=== PATIENT | male | born 1955 | race Caucasian/White ===

== ENCOUNTER 2021-05-16 17:45 | Inpatient (IN) ==
[2021-05-17] MEDS ORDERED: Ipratropium/Albuterol Neb 3 ML IH PRN (02:12)
[2021-05-17 05:58] LABS: Basophils % 0.1 %; Eosinophils # 0.1 K/mcL (0.0-0.6); Eosinophils % 0.4 %; Hemoglobin 8.4 g/dL (12.9-16.9); Immature Granulocytes % 0.9 % (0-4); Lymphocytes # 1.4 K/mcL (0.6-4.6); Lymphocytes % 10.1 %; Mean Corpuscular Hemoglobin 31.3 pg (28.0-33.3); Mean Corpuscular Volume 89.6 fL (83.0-100.0); Mean Platelet Volume 10.4 fL (9.4-12.4); Monocytes % 8.1 %; Nucleated Red Blood Cells 0.1 /100 WBC (0); Platelet Count 155 K/mcL (140-400); Red Blood Count 2.68 M/mcL (4.19-5.50); Red Cell Distribution Width 25.6 % (11.5-14.5); Segmented Neutrophils % 80.4 %; White Blood Count 14.1 K/mcL (4.3-11.1)
[2021-05-17 06:08] LABS: Monocytes # 1.1 K/mcL (0.0-1.3); Neutrophils # 11.3 K/mcL (1.6-8.9)
[2021-05-17 06:21] LABS: Alanine Aminotransferase 67 Units/L (7-52); Albumin 2.2 g/dL (3.5-5.7); Albumin/Globulin Ratio 0.7 (1.1-2.2); Alkaline Phosphatase 96 Units/L (34-104); Aspartate Amino Transferase 119 Units/L (13-39); BUN/Creatinine Ratio 21 (6-26); Bilirubin,Direct 5.4 mg/dL (0.0-0.2); Bilirubin,Indirect 3.6 mg/dL (0.0-1.0); Blood Urea Nitrogen 11 mg/dL (8-23); Carbon Dioxide 29 mEq/L (23-29); Chloride 98 mEq/L (98-107); Glucose 88 mg/dL (70-105); Osmolality,Calculated 271 (280-300); Potassium 3.4 mEq/L (3.5-5.1); Sodium 131 mEq/L (136-145); Total Protein 5.2 g/dL (6.4-8.9); eGFR For African Americans > 60 (> 60); eGFR For Non-African Americans > 60 (> 60)
[2021-05-17] MEDS: Budesonide/Formoterol 160/4.5 1 PUFF INH IH SCH ×2 (09:29→20:38)
[2021-05-17] MEDS: Furosemide 20 MG TABLET PO SCH (09:53)
[2021-05-17] MEDS: Lactulose Oral Soln 20 GM/30 ML UDC PO SCH (09:54)
[2021-05-17] MEDS: Thiamine (B-1) 100 MG TABLET PO SCH (09:54)
[2021-05-17] MEDS: Vitamin B Complex/Vit C/Vit E 1 EACH TABLET PO SCH (09:54)
[2021-05-17] MEDS: Folic Acid 1 MG TABLET PO SCH (09:54)
[2021-05-17] MEDS: PrednisoLONE Oral Soln 15 MG/5 ML UDC PO SCH ×2 (10:01→11:56)
[2021-05-17] MEDS ORDERED: Ondansetron ODT 4 MG TAB.RAPDIS SL PRN (10:05)
[2021-05-17] MEDS: Melatonin 3 MG TABLET PO SCH (20:52)
[2021-05-18] MEDS: *HR* Enoxaparin 40 MG/0.4 ML SYRINGE SQ SCH (06:31)
[2021-05-18] MEDS: Budesonide/Formoterol 160/4.5 1 PUFF INH IH SCH ×2 (09:19→20:27)
[2021-05-18] MEDS: Lactulose Oral Soln 20 GM/30 ML UDC PO SCH (09:27)
[2021-05-18] MEDS: Folic Acid 1 MG TABLET PO SCH (09:31)
[2021-05-18] MEDS: Vitamin B Complex/Vit C/Vit E 1 EACH TABLET PO SCH (09:31)
[2021-05-18] MEDS: Thiamine (B-1) 100 MG TABLET PO SCH (09:31)
[2021-05-18] MEDS: Furosemide 20 MG TABLET PO SCH (09:31)
[2021-05-18] MEDS: PrednisoLONE Oral Soln 15 MG/5 ML UDC PO SCH (09:31)
[2021-05-18] MEDS: Melatonin 3 MG TABLET PO SCH (21:01)
[2021-05-19 05:45] LABS: Mean Corpuscular HGB Conc 34.8 g/dL (31.6-35.5); Mean Corpuscular Hemoglobin 32.7 pg (28.0-33.3); Mean Corpuscular Volume 93.9 fL (83.0-100.0); Mean Platelet Volume 10.5 fL (9.4-12.4); Platelet Count 137 K/mcL (140-400); Red Blood Count 2.45 M/mcL (4.19-5.50); Red Cell Distribution Width 25.9 % (11.5-14.5); White Blood Count 14.1 K/mcL (4.3-11.1)
[2021-05-19] MEDS: *HR* Enoxaparin 40 MG/0.4 ML SYRINGE SQ SCH (06:02)
[2021-05-19 06:03] LABS: Alanine Aminotransferase 75 Units/L (7-52); Albumin 2.3 g/dL (3.5-5.7); Albumin/Globulin Ratio 0.8 (1.1-2.2); Alkaline Phosphatase 98 Units/L (34-104); Aspartate Amino Transferase 123 Units/L (13-39); BUN/Creatinine Ratio 16 (6-26); Bilirubin,Total 10.3 mg/dL (0.3-1.0); Blood Urea Nitrogen 13 mg/dL (8-23); Carbon Dioxide 28 mEq/L (23-29); Chloride 102 mEq/L (98-107); Globulin 2.9 g/dL (2.4-3.5); Glucose 91 mg/dL (70-105); Magnesium 2.3 mg/dL (1.6-2.6); Osmolality,Calculated 278 (280-300); Potassium 4.3 mEq/L (3.5-5.1); Sodium 134 mEq/L (136-145); Total Protein 5.2 g/dL (6.4-8.9); eGFR For African Americans > 60 (> 60); eGFR For Non-African Americans > 60 (> 60)
[2021-05-19 06:04] LABS: Calcium 8.1 mg/dL (8.6-10.3)
[2021-05-19] MEDS: Budesonide/Formoterol 160/4.5 1 PUFF INH IH SCH ×2 (10:05→21:20)
[2021-05-19] MEDS: Furosemide 20 MG TABLET PO SCH (10:14)
[2021-05-19] MEDS: Folic Acid 1 MG TABLET PO SCH (10:14)
[2021-05-19] MEDS: Thiamine (B-1) 100 MG TABLET PO SCH (10:14)
[2021-05-19] MEDS: Vitamin B Complex/Vit C/Vit E 1 EACH TABLET PO SCH (10:14)
[2021-05-19] MEDS: PrednisoLONE Oral Soln 15 MG/5 ML UDC PO SCH (10:15)
[2021-05-19] MEDS: Melatonin 3 MG TABLET PO SCH (20:51)
[2021-05-20] MEDS: *HR* Enoxaparin 40 MG/0.4 ML SYRINGE SQ SCH (05:31)
[2021-05-20] MEDS: Thiamine (B-1) 100 MG TABLET PO SCH (09:39)
[2021-05-20] MEDS: Folic Acid 1 MG TABLET PO SCH (09:40)
[2021-05-20] MEDS: Furosemide 20 MG TABLET PO SCH (09:40)
[2021-05-20] MEDS: Vitamin B Complex/Vit C/Vit E 1 EACH TABLET PO SCH (09:40)
[2021-05-20] MEDS: Budesonide/Formoterol 160/4.5 1 PUFF INH IH SCH ×2 (10:03→20:06)
[2021-05-20] MEDS: Melatonin 3 MG TABLET PO SCH (20:23)
[2021-05-21 04:43] LABS: Hematocrit 22.2 % (37.5-50.1); Hemoglobin 7.8 g/dL (12.9-16.9); Mean Corpuscular HGB Conc 35.1 g/dL (31.6-35.5); Mean Corpuscular Hemoglobin 33.5 pg (28.0-33.3); Mean Corpuscular Volume 95.3 fL (83.0-100.0); Mean Platelet Volume 11.2 fL (9.4-12.4); Platelet Count 125 K/mcL (140-400); Red Blood Count 2.33 M/mcL (4.19-5.50); Red Cell Distribution Width 26.5 % (11.5-14.5); White Blood Count 9.3 K/mcL (4.3-11.1)
[2021-05-21 04:54] LABS: Alanine Aminotransferase 84 Units/L (7-52); Albumin 2.2 g/dL (3.5-5.7); Albumin/Globulin Ratio 0.8 (1.1-2.2); Alkaline Phosphatase 95 Units/L (34-104); Aspartate Amino Transferase 118 Units/L (13-39); BUN/Creatinine Ratio 19 (6-26); Bilirubin,Total 10.2 mg/dL (0.3-1.0); Blood Urea Nitrogen 10 mg/dL (8-23); Carbon Dioxide 27 mEq/L (23-29); Chloride 102 mEq/L (98-107); Globulin 2.7 g/dL (2.4-3.5); Glucose 84 mg/dL (70-105); Magnesium 1.9 mg/dL (1.6-2.6); Osmolality,Calculated 274 (280-300); Potassium 3.9 mEq/L (3.5-5.1); Sodium 133 mEq/L (136-145); Total Protein 4.9 g/dL (6.4-8.9); eGFR For African Americans > 60 (> 60); eGFR For Non-African Americans > 60 (> 60)
[2021-05-21] MEDS: *HR* Enoxaparin 40 MG/0.4 ML SYRINGE SQ SCH (05:29)
[2021-05-21] MEDS: Folic Acid 1 MG TABLET PO SCH (09:18)
[2021-05-21] MEDS: Thiamine (B-1) 100 MG TABLET PO SCH (09:18)
[2021-05-21] MEDS: Furosemide 20 MG TABLET PO SCH (09:19)
[2021-05-21] MEDS: Vitamin B Complex/Vit C/Vit E 1 EACH TABLET PO SCH (09:19)
[2021-05-21] MEDS: Budesonide/Formoterol 160/4.5 1 PUFF INH IH SCH ×2 (10:43→20:13)
[2021-05-21] MEDS: Lactulose Oral Soln 20 GM/30 ML UDC PO SCH (18:29)
[2021-05-21] MEDS: Melatonin 3 MG TABLET PO SCH (21:24)
[2021-05-22] MEDS: *HR* Enoxaparin 40 MG/0.4 ML SYRINGE SQ SCH (04:58)
[2021-05-22 07:59] LABS: % Iron Saturation 53 % (20-55); Iron 78 mcg/dL (65-175); Transferrin 105 mg/dL (203-362)
[2021-05-22] MEDS: Folic Acid 1 MG TABLET PO SCH (08:10)
[2021-05-22] MEDS: Vitamin B Complex/Vit C/Vit E 1 EACH TABLET PO SCH (08:10)
[2021-05-22] MEDS: Furosemide 20 MG TABLET PO SCH (08:10)
[2021-05-22] MEDS: Lactulose Oral Soln 20 GM/30 ML UDC PO SCH (08:10)
[2021-05-22] MEDS: Thiamine (B-1) 100 MG TABLET PO SCH (08:11)
[2021-05-22 08:23] LABS: Folate 14.8 ng/mL (3.0-16.0)
[2021-05-22] MEDS: Budesonide/Formoterol 160/4.5 1 PUFF INH IH SCH ×2 (10:07→20:12)
[2021-05-22] MEDS: Melatonin 3 MG TABLET PO SCH (20:48)
[2021-05-23 04:51] LABS: Hematocrit 22.3 % (37.5-50.1); Hemoglobin 7.6 g/dL (12.9-16.9); Mean Corpuscular HGB Conc 34.1 g/dL (31.6-35.5); Mean Corpuscular Hemoglobin 33.2 pg (28.0-33.3); Mean Corpuscular Volume 97.4 fL (83.0-100.0); Mean Platelet Volume 10.3 fL (9.4-12.4); Platelet Count 116 K/mcL (140-400); Red Blood Count 2.29 M/mcL (4.19-5.50); Red Cell Distribution Width 26.4 % (11.5-14.5); White Blood Count 9.7 K/mcL (4.3-11.1)
[2021-05-23 05:06] LABS: Alanine Aminotransferase 87 Units/L (7-52); Albumin 2.4 g/dL (3.5-5.7); Albumin/Globulin Ratio 0.9 (1.1-2.2); Alkaline Phosphatase 116 Units/L (34-104); Aspartate Amino Transferase 104 Units/L (13-39); BUN/Creatinine Ratio 12 (6-26); Bilirubin,Total 9.7 mg/dL (0.3-1.0); Blood Urea Nitrogen 9 mg/dL (8-23); Calcium 7.7 mg/dL (8.6-10.3); Carbon Dioxide 27 mEq/L (23-29); Chloride 101 mEq/L (98-107); Globulin 2.8 g/dL (2.4-3.5); Glucose 95 mg/dL (70-105); Magnesium 1.9 mg/dL (1.6-2.6); Osmolality,Calculated 274 (280-300); Sodium 133 mEq/L (136-145); Total Protein 5.2 g/dL (6.4-8.9); eGFR For African Americans > 60 (> 60); eGFR For Non-African Americans > 60 (> 60)
[2021-05-23] MEDS: *HR* Enoxaparin 40 MG/0.4 ML SYRINGE SQ SCH (06:54)
[2021-05-23] MEDS: Furosemide 20 MG TABLET PO SCH (08:46)
[2021-05-23] MEDS: Lactulose Oral Soln 20 GM/30 ML UDC PO SCH (08:46)
[2021-05-23] MEDS: Folic Acid 1 MG TABLET PO SCH (08:46)
[2021-05-23] MEDS: Thiamine (B-1) 100 MG TABLET PO SCH (08:46)
[2021-05-23] MEDS: Budesonide/Formoterol 160/4.5 1 PUFF INH IH SCH ×2 (11:01→19:37)
[2021-05-23 16:52] VITALS: O2SAT 97
[2021-05-23 19:40] VITALS: TEMP 97.6
[2021-05-23] MEDS: Vitamin B Complex/Vit C/Vit E 1 EACH TABLET PO SCH (19:49)
[2021-05-23] MEDS: Melatonin 3 MG TABLET PO SCH (19:52)
[2021-05-24 07:53] VITALS: BP 112/72; PULSE 93; RESP 17
[2021-05-24] MEDS: Furosemide 20 MG TABLET PO SCH (08:17)
[2021-05-24] MEDS: Folic Acid 1 MG TABLET PO SCH (08:17)
[2021-05-24] MEDS: Vitamin B Complex/Vit C/Vit E 1 EACH TABLET PO SCH (08:17)
[2021-05-24] MEDS: Thiamine (B-1) 100 MG TABLET PO SCH (08:17)
[2021-05-24] MEDS: Lactulose Oral Soln 20 GM/30 ML UDC PO SCH (08:17)
[2021-05-24] MEDS: Budesonide/Formoterol 160/4.5 1 PUFF INH IH SCH (10:43)
== END 2021-05-24 11:46 | disposition home health service (06) | DRG 432 ==
LOC: INPGRE 22:38
PROVIDERS: ADMIT Family Medicine; ATTEND Family Medicine